=== PATIENT | female | born 1965 | race Caucasian/White ===

== ENCOUNTER 2018-06-05 15:46 | Emergency (ER) | payer BC ==
[~2018-06-05] VITALS: Ht 162.6 cm; Wt 74.8 kg
[2018-06-05 16:03] LABS: URINE BILIRUBIN NEGATIVE (Negative); URINE BLOOD NEGATIVE (Negative); URINE CLARITY CLEAR; URINE COLOR YELLOW; URINE GLUCOSE-RANDOM* NEGATIVE (Negative); URINE KETONES NEGATIVE (Negative); URINE LEUKOCYTES-REFLEX TRACE (Negative); URINE NITRITE-REFLEX NEGATIVE (Negative); URINE PROTEIN (DIPSTICK) NEGATIVE (Negative); URINE UROBILINOGEN 0.2 E.U./dl (0.2-1.0)
[2018-06-05] MEDS ORDERED: METHOTREXATE 22.5 MG PO (16:08)
[2018-06-05] MEDS ORDERED: HUMIRA40 MG/0.1 SUBQ (16:10)
[2018-06-05 16:26] LABS: ABSOLUTE NEUTROPHILS 3.4 thou/uL (1.4-8.2); CALCIUM 9.7 mg/dL (8.5-10.1); CREATININE 0.7 mg/dL (0.6-1.0); EOSINOPHILS 1.1 % (0.0-3.0); HEMATOCRIT 35.3 % (37.0-47.0); HEMOGLOBIN 11.8 gm/dL (12.0-15.0); LYMPHOCYTES 29.6 % (24.0-44.0); MCH 30.4 pg (26.0-34.0); MCHC 33.4 g/dL (28.0-37.0); MCV 90.9 fL (80.0-100.0); PLATELET COUNT 220 thou/uL (150-400); POLYS 59.3 % (36.0-66.0); POTASSIUM 3.8 mmol/L (3.5-5.1); RBC 3.88 mil/uL (4.20-5.00); RDW 15.9 % (10.5-14.5); WBC 5.8 thou/uL (4.0-11.0)
[2018-06-05 16:33] LABS: TOTAL BILIRUBIN 0.3 mg/dL (<0.1-1.0); TOTAL PROTEIN 7.4 g/dL (6.4-8.2)
[2018-06-05] MEDS ORDERED: CYCLOBENZAPRINE5 MG PO (20:59)
[2018-06-05] MEDS ORDERED: NORCO 10-325 T1 EACH PO (20:59)
[2018-06-05] MEDS ORDERED: MEDROLDOSEPACK PO (20:59)
[2018-06-05 21:23] VITALS: BP 135/7
== END 2018-06-05 21:24 | disposition home or self-care (01) ==
LOC: ER 15:46
PROVIDERS: Physician Assistant
DX: M51.26 Other intervertebral disc displacement, lumbar region (principal); M06.9 Rheumatoid arthritis, unspecified; Z87.891 Personal history of nicotine dependence

== ENCOUNTER 2019-02-02 00:09 | Inpatient (IN) | payer BC ==
[2019-02-02] VITALS (50 sets, daily range): BP systolic 76–119; BP diastolic 51–78
[~2019-02-02] VITALS: Ht 152.4 cm; Wt 77.1 kg
[~2019-02-02 00:09] MED LIST: CYCLOBENZAPRINE5 MG PO; HUMIRA40 MG/0.1 SUBQ; MEDROLDOSEPACK PO; METHOTREXATE 22.5 MG PO; NORCO 10-325 T1 EACH PO; OSELB75 PO
[2019-02-02] MEDS ORDERED: NORCO 5-325 TA1 EAC1 PO (00:23)
[2019-02-02] MEDS ORDERED: SUPER THERAVIT1 EACH PO (00:24)
[2019-02-02] MEDS ORDERED: FOLIC ACID1 MG PO (00:24)
[2019-02-02 00:31] LABS: HEMATOCRIT 24.8 % (37.0-47.0); HEMOGLOBIN 8.1 gm/dL (12.0-15.0); MCH 31.1 pg (26.0-34.0); MCHC 32.6 g/dL (28.0-37.0); MCV 95.3 fL (80.0-100.0); PLATELET COUNT 243 thou/uL (150-400); RDW 15.1 % (10.5-14.5); WBC 14.2 thou/uL (4.0-11.0)
[2019-02-02 00:40] LABS: ANION GAP 5 mmol/L (7-16); BUN 14 mg/dL (7-18); CALCIUM 8.1 mg/dL (8.5-10.1); CHLORIDE 102 mmol/L (98-107); CO2 27 mmol/L (21-32); CREATININE 0.8 mg/dL (0.6-1.0); GLUCOSE 161 mg/dL (74-106); POTASSIUM 4.1 mmol/L (3.5-5.1); SODIUM 134 mmol/L (136-145)
[2019-02-02 00:45] LABS: APTT 20.5 Seconds (24.5-32.8); PROTIME 10.9 Seconds (9.3-11.4)
[2019-02-02 00:51] LABS: ALBUMIN 2.7 g/dL (3.4-5.0); DIRECT BILIRUBIN < 0.1 mg/dL (<0.1-0.3); SGOT 33 U/L (15-37); SGPT 53 U/L (30-65); TOTAL BILIRUBIN 0.2 mg/dL (<0.1-1.0); TOTAL PROTEIN 5.1 g/dL (6.4-8.2); TROPONIN-I <0.06 ng/mL (<0.06)
[2019-02-02 01:02] LABS: ABSOLUTE NEUTROPHILS 11.1 thou/uL (1.4-8.2)
[2019-02-02 01:03] LABS: TOXIC GRANULATION SLIGHT
[2019-02-02 02:53] LABS: HEMATOCRIT 20.7 % (37.0-47.0); RBC 2.17 mil/uL (4.20-5.00); RDW 14.9 % (10.5-14.5)
[2019-02-02 02:54] LABS: HEMOGLOBIN 6.8 gm/dL (12.0-15.0); MCH 31.2 pg (26.0-34.0); MCHC 32.6 g/dL (28.0-37.0); MCV 95.6 fL (80.0-100.0); WBC 16.3 thou/uL (4.0-11.0)
--- NOTE | 2019-02-02 04:40 | NUR ---
PATIENT TRANSPORTED TO ROOM 359 WITH BLOOD TRANSFUSION IN PROGRESS. TO BE COMPLETED BY INPATIENT NURSE WHEN TRANSFUSION COMPLETE
--- NOTE | 2019-02-02 07:18 | NUR ---
PATIENT WAS A NEW ADMISSION TO THE UNIT THIS SHIFT. SHE ARRIVED VIA CART FROM THE ER AND WAS ABLE TO AMBULATE TO THE BED WITH ASSISTANCE. FULLY ORIENTED, PATIENT WAS ABLE TO PARTICIPATE IN ADMISSION PROCESS. BLOOD TRANSFUSION FINISHED PRIOR TO SHIFT CHANGE. PATIENT IS COMPLAINING OF PAIN IN ABDOMEN AND LEFT SHOULDER WHICH HAVE BEEN TREATED APPROPRIATELY THROUGH MEDICATION. NURSE TO COMPLETE ADMISSION AND INITIATE PLAN OF CARE.
[2019-02-02 07:49] LABS: HEMATOCRIT 22.6 % (37.0-47.0); HEMOGLOBIN 7.5 gm/dL (12.0-15.0)
--- NOTE | 2019-02-02 09:00 | NUR ---
PT ASSESSED AFTER REPORT FROM NOC RN. PT VERY ILL-APPEARING W/ C/O FEELINGS OF NOT BEING ABLE TO BREATHE. O2 AT 2L W/ SAT AT 98%. BP DROPPING SOME AND HGB 7.5 AFTER RECEIVING UNIT OF PRBC'S. STAT CONSULT PLACED TO DR. DU AND DR. COVARRUBIAS IN HOUSE SO CAME TO SEE PT. DR. MORRIS ON THE UNIT AND TALKED W/ SURGEON RE PLAN. TALKED W/ PT AND HER ABOUT PLAN TO TRANSFER TO ICU AND STABALIZE W/ MORE BLOOD TRANSFUSIONS AND WOULD DISCUSS W/ HER SURGEON DR. CLIFTON. PT TRANSFERRED AT THIS TIME TO RM 237 AND REPORT GIVEN TO ACCEPTING RN.
--- NOTE | 2019-02-02 09:35 | NUR ---
PT ARRIVED ON THE UNIT @ APPROX 0907, WITH THE AID OF NURSING STAFF, NS GOING @ 1200ML/HR, CHELSI DRAINSX3 @ ABD WALL, SANGUINEOUS DRAINAGE. DR COVARRUBIAS SURGERY AT BED SIDE, ORDERS RECIEVED TO GIVE BLOOD AND MORE FLUIDS AND RECHECK H&H ONE HOUR AFTER THE COMPLETE TRANFUSION.
[2019-02-02 11:43] LABS: HEMATOCRIT 20.7 % (37.0-47.0)
[2019-02-02 11:44] LABS: HEMOGLOBIN 6.7 gm/dL (12.0-15.0)
--- NOTE | 2019-02-02 12:28 | EKG ---
[address] [address] ELECTROCARDIOGRAM REPORT Name: BEATRIZ ESCOBAR Room #: 237-P ADM IN M.R.#: [id number] Admission: 02/02/19 Attend Phys: Blake Maldonado MD Discharge: Date of : 63 Report #: [id number] THIS REPORT FOR: //name// [facility] ED Test Date: 2019-02-02 Test Time: 00:20:52 Pat Name: BEATRIZ ESCOBAR Department: Room: 237 Gender: F [employer] Coordinator: MARCO : 1965 Requested By: Jaclyn العراقي Order Number: [id number] MD: Soham Sweet Measurements Intervals Dingess Rate: 50 P: 24 OK: 137 QRS: 15 QRSD: 94 T: 35 QT: 460 QTc: 420 Interpretive Statements Sinus rhythm Compared to ECG 06/20/2018 23:00:38 No significant changes Electronically Signed On 02-02-2019 12:28:15 PATIENT SERVICE REPRESENTATIVE by Soham Sweet [email or web address] <ELECTRONICALLY SIGNED> By: Soham Sweet MD 02/02/19 1228 0020 0020 Soham Sweet MD /JUAN
--- NOTE | 2019-02-02 14:21 | NUR ---
PT ENROUTE TO OR AT THIS TIME WITH THE AID OF NURSING STAFF.
--- NOTE | 2019-02-02 15:00 | NUR ---
INITIAL ASSESSMENT: SW reviewed chart and spoke with nursing and attending physician. Pt was admitted due to acute blood loss following cosmetic surgical procedure. Pt admitted to and transferred to ICU earlier today. Pt received blood transfusions. Surgery consulted. Pt with large abdominal wall hematoma. Pt is currently of the unit in OR. Pt's procedure was completed at [facility] by Dr. Gilberto Benitez. Per chart, pt is alert/orientated and normally lives at home with her . No weekend discharge planned. SW to follow up with pt and family at a later time to assist as needed with discharge planning.
--- NOTE | 2019-02-02 18:06 | NUR ---
VAT CONSULTED FOR A PICC, 5FRTLPICC PLACED IN [place] FOR BLOOD PRODUCTS, IV MEDS AND OR, PLEASE SEE INSERTION NI FOR DETAILS
--- NOTE | 2019-02-02 19:18 | NUR ---
PT BACK FROM RECOVERY @ APPROX 1756 WITH THE ASSIST OF NURSING STAFF, VSS, NO COMPLICATIONS NOTED AT THIS TIME, INCISION FROM SURGERY IN MID ABD PER REPORT, RN UNABLE TO OBSERVE DUE TO BINDER PLACED IN THE OR. PLAN OF CARE- CONT TO MONITOR.
[2019-02-03] VITALS (16 sets, daily range): BP systolic 98–123; BP diastolic 51–64
[2019-02-03 05:41] LABS: HEMOGLOBIN 6.9 gm/dL (12.0-15.0); MCH 30.7 pg (26.0-34.0)
[2019-02-03 05:42] LABS: HEMATOCRIT 20.3 % (37.0-47.0); RBC 2.25 mil/uL (4.20-5.00); RDW 15.2 % (10.5-14.5); WBC 8.3 thou/uL (4.0-11.0)
[2019-02-03 05:45] LABS: MCV 90.3 fL (80.0-100.0)
[2019-02-03 05:56] LABS: CALCIUM 7.3 mg/dL (8.5-10.1); CREATININE 0.6 mg/dL (0.6-1.0); POTASSIUM 4.4 mmol/L (3.5-5.1)
--- NOTE | 2019-02-03 06:00 | NUR ---
Pt remains stable in this shift. No event last night. No obvious signs of active bleeding. Her CHELSI drains are patent and draining fancy wire drawer in serosanguneous color. Pain had been adequated control with IV pain med. ABD binder intact. Jose David clear liquid diet. Good urine output. Labs are pending this am. Continue progressing toward goals.
--- NOTE | 2019-02-03 17:34 | NUR ---
ASSUMED CARE OF PT AT 1300. PT HAD COMPLAINTS OF PAIN AND IS BEING CONTROLLED BY PAIN MEDICATION. PER DOCTOR PT WILL NOT HAVE A BLOOD TRANSFUSION, HGB IS 6.9. IV IS DRY AND INTACT. CATHETER IS REMOVED PER ORDERS. DRESSING IS DRY AND INTACT. PT ALSO HAS COMPLAINTS OF PAIN IN HER UPPER LEFT CHEST, DENIES NUMBNESS AND TIGGLING AND STATES "PAIN COMES AND GOES", NO JAW PAIN OR CHEST TIGHTNESS. PT HAS EDEMA ON HER ARMS AND LEGS. DRAINS ARE INTACT WITH MINIMAL DRAINAGE. WILL CONTINUE TO MONITOR AND GIVE REPORT TO [facility] NURSE.
[2019-02-04 05:30] VITALS: BP 114/55
--- NOTE | 2019-02-04 05:42 | NUR ---
ASSUED PT CARE ON 02/03/19. PT HAS COMPLAINTS OF PAIN. SCHEDULED MEDICATION AND PAIN MEDICATION WAS ADMINISTERED. WAS IN THE ROOM DURING INTRODUCTION. HAD COMPLAINTS OF ANTS ON THE WINDOW SEAL IN THE ROOM. AFTER SPEAKING WITH THE CHIEF RADIATION THERAPIST I WAS INSTRUCTED TO MOVE THE PT TO ANOTHER ROOM. PT WAS MOVED AND SHE AND HER FAMILY WAS MORE SATISFIED. PT AMBULATED TO THE RESTROOM MULTIPLE TIMES DURING THE SHIFT. SHE PREFERS TO BE IN A HIGH FOWLERS POSITION. WHEN TENDING TO PT SHE REQUIRES EXTRA TIME. PT STATED THAT SHE GOT MORE REST THAN SHE EXPECTED. ANTIBIOTICS HUNG AND PT RESTING AGAIN IN THE ROOM. WILL CONTINUE TO MONITOR.
[2019-02-04 08:51] VITALS: BP 104/52
--- NOTE | 2019-02-04 15:04 | NUR ---
ASSUMED CARE OF PT AT 0700. PT UP AND WALKING AROUND UNIT AND USING THE TOILET. SWELLING IN ARMS, HANDS, LEGS AND FEET ARE BEING MONITORED, MEDICATION GIVEN, SEE EMAR. DRESSING CLEAN AND INTACT. PTS LEGS WERE ELEVATED WHILE SITTING IN THE CHAIR AND PILLOW IN THE LAP TO HELP WITH PAIN WHILE COUGHING. LUNGS ARE CLEAR. DRAINAGE IS MINIMUM AND DRAINS ARE INTACT. TRIPLE LUMEN R UPPER ARM DRY AND INTACT. R FOREARM DRY AND INTACT. FALL PRECAUTIONS IN PLACE AND PT EDUCATED. BED IN LOWEST POSITION AND CALL LIGHT WITHIN REACH. WILL CONTINUE TO MONITOR THE PT.
[2019-02-04 16:40] VITALS: BP 96/43
[2019-02-04 19:09] VITALS: BP 96/55
[2019-02-05] VITALS (7 sets, daily range): BP systolic 95–146; BP diastolic 51–77
--- NOTE | 2019-02-05 06:17 | NUR ---
PATIENT ALERT AND ORIENTED X4. C/O PAIN, MED GIVEN WITH NO RELIEF. STATES THAT REST AND SLEEP DID HELP PAIN. HAD SHOWER THIS AM. DRESSINGS ON AMELIE INTACT. ABD BINDER REPLACED AFTER SHOWER. HAS 3 CHELSI DRAINS, 1 ON THE RIGHT AND 2 ON THE LEFT. TRIPLE LUMAN PICC PATENT AND DRAWS GREAT. UP IN HALLS SEVERAL TIMES WITH . SLEPT OFF AND ON DURING NIGHT.
[2019-02-05 06:23] LABS: RDW 14.8 % (10.5-14.5)
[2019-02-05 06:24] LABS: MCH 30.1 pg (26.0-34.0); MCHC 32.8 g/dL (28.0-37.0); MCV 91.6 fL (80.0-100.0); RBC 1.97 mil/uL (4.20-5.00); WBC 7.1 thou/uL (4.0-11.0)
[2019-02-05 06:31] LABS: HEMATOCRIT 18.1 % (37.0-47.0); HEMOGLOBIN 5.9 gm/dL (12.0-15.0)
[2019-02-05 13:06] LABS: APTT 23.2 Seconds (24.5-32.8)
--- NOTE | 2019-02-05 14:18 | NUR ---
CONSULTED THIS AM TO ASSIST WITH TRANSFER TO [facility]. CHART COPY REQUESTED AND REQUESTED RADIOLOGY FILMS/REPORTS BE CLOUDED OR PLACED ON DISC FOR TRANSFER. S/W PT AND WITH RAJINDER AT TRANSFER CENTER. FAXED FACE SHEET REQUESTED. RECEIVED CALL BACK FROM ROZINA AT TRANSFER CENTER SAYING PT HAD BEEN ACCEPTED BUT CURRENTLY NO BED AVAILABLE. NOTIFIED NURSING AND DR MORRIS. AWAITING AVAILABLE BED. DR JANINE CLIFTON WILL BE THE ACCEPTING DR.
--- NOTE | 2019-02-05 16:25 | NUR ---
PT ASSESSED AT START OF SHIFT. UP AND AROUND STEADY IN THE ROOM AND ABLE TO AMBULATE IN THE HALLS. STATES FEELS SO MUCH BETTER AND AND STRENGTH IN LEGS IS GOOD. EATING AND DRINKING WELL.
--- NOTE | 2019-02-05 17:02 | NUR ---
S/W [facility] TRANSFER CENTER AGIAN AND STILL NO BED AVAILABLE AND NO BED EXPECTED BUT THEY HAVE 4S UNIT NUMBER IF ANYTHING CHANGES. FOLLOWING.
--- NOTE | 2019-02-05 21:38 | NUR ---
Assumed pt care at 1900. Pt A/OX4,VSS. Pt is up with SBA to BSC and voiding adequately. Has dependent edema to BLE/thighs. Pt was to transfer to [facility] if bed available, they called at shift change and had a bed available for transfer pt notified and consented to it. Transfer paperwork completed and faxed to approp parties. Report called to Nina RUDOLPH at [facility]. Pt left at 2124 via cart accompanied by family and EMS services. Medicated for pain prior to discharge. All personal belongings sent with the pt.
--- NOTE | 2019-02-07 07:54 | O ---
[facility] [place] [address] OPERATIVE REPORT Name: BEATRIZ ESCOBAR Room #: 440-P [facility] IN M.R.#: [id number] Admission: 02/02/19 Attend Phys: Blake Maldonado MD Discharge: 02/05/19 Date of : 63 Report #: [id number] THIS REPORT FOR: //name// CC: Blake Hoffmaneddie Oglesby DATE OF SERVICE: 02/02/2019 PREOPERATIVE DIAGNOSIS: Abdominal wall bleeding and hematoma, status post abdominoplasty. POSTOPERATIVE DIAGNOSIS: Abdominal wall bleeding and hematoma, status post abdominoplasty. OPERATIVE PROCEDURE DONE: Exploration of abdominal wound and evacuation of hematoma, status post abdominoplasty. OPERATING SURGEON: Flavio Padron MD WASHERETTE MACHINE OPERATOR: Zachary. INDICATIONS FOR THE PROCEDURE: The patient is a 53-year-old female who underwent abdominoplasty by Dr. Gilberto Benitez yesterday. The patient presented last night with abdominal pain. CT scan showed features of a large abdominal hematoma. The patient was hypertensive and her hemoglobin continued to drop and the patient was therefore advised that conservative measures fail. The patient was advised exploratory laparotomy and also evacuation of hematoma to avoid any further infection. DESCRIPTION OF PROCEDURE: After explaining to the patient in detail and informed consent was obtained, the patient was identified in the surgical ICU and was transferred to the operating room. After induction of anesthesia, the abdomen was prepped and draped in a sterile fashion. Through the previous midline incision, the midline incision was opened. The subcutaneous space was entered. There was approximately about 1500 mL of mostly clot and some blood within the space extending to both sides of the flank and also into the lower abdomen. Thorough saline irrigation of this was given. All the clots were thoroughly evacuated. I then inspected for any active source of bleeding. I did not see any obvious bleeding vessel. There was minimal oozing from the tissues, which was cauterized. Thorough saline irrigation was given and I once again packed these areas and inspected for any active bleeding. There was no bleeding that was noted. The drains were placed in the same position as they were prior to surgery. The midline incision was then closed in 2 layers using 2-0 Monocryl for subcutaneous tissue and 4-0 Monocryl for subcuticular tissue. Steri-Strips were placed. The patient was stable at the end of the procedure. The patient was awoken from anesthesia and was transferred to the recovery room [address] [address] OPERATIVE REPORT Name: BEATRIZ ESCOBAR Room #: 440-P [facility] IN ..#: [id number] Admission: 02/02/19 Attend Phys: Blake Maldonado MD Discharge: 02/05/19 Date of : 63 Report #: [id number] in stable condition. ESTIMATED BLOOD LOSS: 20 mL. CONDITION THE PATIENT: Stable. FLUIDS GIVEN: Per anesthesia notes. SPECIMEN SENT: None. COMPLICATIONS: None. ANESTHESIA: General anesthesia. <ELECTRONICALLY SIGNED> By: Flavio Padron MD 02/07/19 0754 1610 1719 Flavio Padron MD /nt
== END 2019-02-05 21:25 | disposition short-term general hospital (02) | DRG 579 ==
LOC: ER 00:09 → EROBS 03:16 → 4S 03:16 → 3W 04:33 → ICU 04:33 → 3W 04:38 → ICU 09:02 → 4S 02-03 13:13
PROVIDERS: Emergency Medicine; Hospitalist; Nurse Practitioner Family; Surgery; ADMIT Hospitalist
PROC: 0W9F0ZZ Drainage of Abdominal Wall, Open Approach (ICD-10-PCS; principal; 2019-02-02)
PROC: 0JQ80ZZ Repair Abdomen Subcutaneous Tissue and Fascia, Open Approach (ICD-10-PCS; principal; 2019-02-02)
PROC: 30233N1 Transfusion of Nonautologous Red Blood Cells into Peripheral Vein, Percutaneous Approach (ICD-10-PCS; principal; 2019-02-02)
DX: S30.1XXA Contusion of abdominal wall, initial encounter (principal); J18.9 Pneumonia, unspecified organism; D62 Acute posthemorrhagic anemia; R58 Hemorrhage, not elsewhere classified; M06.9 Rheumatoid arthritis, unspecified; Z90.49 Acquired absence of other specified parts of digestive tract; Z82.49 Family history of ischemic heart disease and other diseases of the circulatory system
CPT/HCPCS: 10078; 10102; 27000; 50101; 50386; 50455; 56525; 56526; 57092; 62110; 62900; 65090; 70005; 85076